=== PATIENT | female | born 2000 | race American Indian/Alaskan Native ===

== ENCOUNTER 2021-03-28 12:01 | Emergency (ER) | payer SELFPAY ==
[~2021-03-28] VITALS: Ht 170.2 cm; Wt 72.7 kg
[2021-03-28 12:32] VITALS: TEMP 98.8
[2021-03-28] MEDS ORDERED: AMOXICILLIN875 MG PO (13:04)
[2021-03-28 13:06] VITALS: BP 134/86; PULSE 86
== END 2021-03-28 13:12 | disposition home or self-care (01) ==
LOC: COL.ER 12:01
DX: H66.92 Otitis media, unspecified, left ear (principal); J32.9 Chronic sinusitis, unspecified; J45.909 Unspecified asthma, uncomplicated

== ENCOUNTER 2021-04-28 14:22 | Emergency (ER) | payer SELFPAY ==
[~2021-04-28] VITALS: Ht 170.2 cm; Wt 75.0 kg
[~2021-04-28 14:22] MED LIST: AMOXICILLIN875 MG PO
[2021-04-28 14:30] VITALS: BP 114/86; TEMP 97.6
[2021-04-28] MEDS ORDERED: PROAIR HFA0.09 MG/AC IH (14:50)
[2021-04-28 14:58] VITALS: PULSE 86
== END 2021-04-28 14:58 | disposition home or self-care (01) ==
LOC: COL.ER 14:22
DX: Z76.0 Encounter for issue of repeat prescription (principal); J45.909 Unspecified asthma, uncomplicated; F17.200 Nicotine dependence, unspecified, uncomplicated